=== PATIENT | female | born 1995 | race Caucasian/White ===

== ENCOUNTER 2022-02-13 15:07 | Emergency (ER) | payer OTHER ==
[~2022-02-13] VITALS: Ht 154.9 cm; Wt 58.1 kg
[2022-02-13 15:09] VITALS: BP 126/70
== END 2022-02-14 00:53 | disposition left against medical advice (07) ==
LOC: ER 15:07
DX: S09.93XA Unspecified injury of face, initial encounter (principal); Z88.2 Allergy status to sulfonamides; Z53.29 Procedure and treatment not carried out because of patient's decision for other reasons; W22.8XXA Striking against or struck by other objects, initial encounter; Y93.89 Activity, other specified; Y92.89 Other specified places as the place of occurrence of the external cause; Y99.8 Other external cause status
CPT/HCPCS: 70486